=== PATIENT | female | born 1985 | race African-American/Black ===

== ENCOUNTER 2016-08-02 19:13 | Emergency (ER) | payer OTHER ==
[~2016-08-02] VITALS: Ht 160 cm; Wt 88.7 kg
[~2016-08-02 19:13] MED LIST: KEFLEX500 MG PO
[2016-08-02 20:04] LABS: HEMATOCRIT 38.1 % (36.0-46.0); MCH 25.8 PG (29.0-34.0); MCV 80.5 FL (83-99); MEAN PLAT.VOLUME 9.1 uM^3 (9.5-12.4); PLATELET COUNT 435 K/uL (156-360); RBC DIS.WIDTH-CV 13.4 % (11.8-14.6); RBC DIS.WIDTH-SD 39.4 % (39-53); RED BLOOD COUNT 4.73 M/uL (3.80-5.20); WHITE BLOOD COUNT 14.2 K/uL (4.1-10.2)
[2016-08-02 20:17] LABS: CHLORIDE 107 mEq/L (99-109); POTASSIUM 3.8 mEq/L (3.7-5.4); SODIUM 139 mEq/L (136-147)
[2016-08-02 20:18] LABS: GLUCOSE 98 mg/dL (70-99)
[2016-08-02 20:20] LABS: ANION GAP 11 MEQ/L (2-14)
[2016-08-02 20:22] LABS: GFR ESTIMATE (CALCULATED) > 59 mL/min/
[2016-08-02 20:23] LABS: UREA NITROGEN (BUN) 7 mg/dL (9-23)
[2016-08-02 20:26] LABS: TROP-I INTERPRETATION NEGATIVE; TROPONIN-I < 0.01 ng/mL (0.0-0.30)
[2016-08-02 21:56] VITALS: BP 136/90
== END 2016-08-02 22:03 | disposition home or self-care (01) ==
LOC: EME 19:13
DX: R07.89 Other chest pain (principal); R00.2 Palpitations
CPT/HCPCS: 71020; 80048; 84443; 84484; 85027; 93005; 99281; 99284